=== PATIENT | female | born 1945 | race Caucasian/White ===

== ENCOUNTER 2016-10-10 12:06 | Outpatient (CLI) | payer MEDICARE, BC ==
[~2016-10-10] VITALS: Ht 167.6 cm; Wt 68.1 kg
[2016-10-10 12:52] VITALS: BP 118/62; PULSE 69
== END 2016-10-10 13:35 | disposition home or self-care (01) ==
LOC: EUO 12:06
DX: M81.0 Age-related osteoporosis without current pathological fracture (principal)
CPT/HCPCS: J3489

== ENCOUNTER → 2016-10-10 | Outpatient (CLI) | payer MEDICARE, BC ==
[~2016-10-10] MED LIST: ASPIRIN E.C. 8181 MG PO; CALCIUM 600/VIT1 CA1 PO; MULTI VITAMINS1 TAB PO; SYNTHROID0.075 MG/T PO; ZOCOR 20MG20 MG PO
== END ==
LOC: MC.RAD 10:46
DX: Z12.31 Encounter for screening mammogram for malignant neoplasm of breast (principal)

== ENCOUNTER 2017-10-14 12:50 | Outpatient (CLI) | payer MEDICARE, BC ==
[~2017-10-14] VITALS: Ht 167.6 cm; Wt 71.0 kg
[2017-10-14] MEDS ORDERED: SYNTHROID0.088 MG/T PO (13:24)
[2017-10-14] MEDS ORDERED: VITAMIN D32000 I1 PO (13:25)
[2017-10-14 13:26] VITALS: BP 140/83; PULSE 62; TEMP 98.2
== END 2017-10-14 14:40 | disposition home or self-care (01) ==
LOC: EUO 12:50
DX: M81.0 Age-related osteoporosis without current pathological fracture (principal)
CPT/HCPCS: J3489

== ENCOUNTER → 2018-10-27 | Outpatient (CLI) | payer MEDICARE, BC ==
[~2018-10-27] MED LIST changes: +SYNTHROID0.088 MG/T PO; +VITAMIN D32000 I1 PO
== END ==
LOC: MC.RAD 11:06
DX: Z12.31 Encounter for screening mammogram for malignant neoplasm of breast (principal)

== ENCOUNTER → 2021-02-22 | Outpatient (CLI) | payer MEDICARE, BC | LOC: MC.RAD 11:20 | DX: Z12.31 Encounter for screening mammogram for malignant neoplasm of breast (principal) ==